=== PATIENT | female | born 1965 | race Caucasian/White ===

== ENCOUNTER 2023-04-14 00:09 | Inpatient (IN) | payer OTHER ==
[~2023-04-14] VITALS: Ht 160 cm; Wt 80.5 kg
[2023-04-14 03:10] VITALS: BP 104/71
[2023-04-14 04:04] LABS: Hematocrit 39.2 % (33.0-51.0); Hemoglobin 13.2 g/dL (11.5-16.0); Mean Platelet Volume 9.9 fL (9.1-12.4); Platelet Count 214 K/mm3 (150-400)
[2023-04-14 04:24] LABS: CHOL/HDL RATIO 3.1; Cholesterol 132 mg/dL (50-200); HDL Cholesterol 42 mg/dL (>39); LDL/HDL RATIO 1.3; Low Density Lipoprotein Chol 54 mg/dL (0-110); Triglycerides 179 mg/dL (30-160); Very Low Density Lipoprot Chol 35 mg/dL (6-32)
[2023-04-14] MEDS ORDERED: DIGOX125 MC1 PO (05:33)
[2023-04-14] MEDS ORDERED: CLON1 PO (05:33)
[2023-04-14] MEDS ORDERED: TRULICITY0.75 MG/01 SC (05:34)
[2023-04-14] MEDS ORDERED: FURO40 PO (05:35)
[2023-04-14] MEDS ORDERED: LAMO100 PO (05:35)
[2023-04-14] MEDS ORDERED: LEVALBUTER0.63 MG/1 INH (05:36)
[2023-04-14] MEDS ORDERED: LEVSOD25 PO (05:37)
[2023-04-14] MEDS ORDERED: LOSA25 PO (05:38)
[2023-04-14] MEDS ORDERED: METF500 PO (05:38)
[2023-04-14] MEDS ORDERED: METO50 PO (05:39)
[2023-04-14] MEDS ORDERED: PANT40 PO (05:39)
[2023-04-14] MEDS ORDERED: POTA10T PO (05:40)
[2023-04-14] MEDS ORDERED: POTCHL20ER PO (05:41)
[2023-04-14] MEDS ORDERED: PRAV20 PO (05:42)
[2023-04-14] MEDS ORDERED: XARELTO20 MG PO (05:42)
[2023-04-14] MEDS ORDERED: Ropinirole HCl1 MG PO ×2 (05:42→05:43)
[2023-04-14] MEDS ORDERED: INSULIN GL100 UNIT/3 SC (05:44)
[2023-04-14] MEDS ORDERED: Aspir 8181 MG PO (05:44)
[2023-04-14] MEDS ORDERED: TRELEGY ELLIPT1 EACH INH (05:45)
[2023-04-14] MEDS ORDERED: NITR.4SL SL (05:45)
--- NOTE | 2023-04-14 06:45 | NUR ---
SHIFT SUMMARY PATIENT WAS A DIRECT ADMIT FROM [facility] IN [place] FOR NSTEMI. PATIENT ALERT AND ORIENTED X4, MINIMAL ASSIST TO THE RESTROOM. SIGNIFICANT OTHER AT BEDSIDE. PATIENT ON 2 LITERS O2 VIA NASAL CANULA FOR COMFORT, SHE REPORTS THAT SHE NORMALLY WEARS A BIPAP TO SLEEP. PATIENT DENIES CHEST PAIN OR SHORTNESS OF BREATH. BLOOD PRESSURES STABLE, JUNCTIONAL RHYTHM 40'S-50'S ON TELE. HEPARIN INFUSION RUNNING. WILL CONTINUE TO MONITOR. CALL LIGHT WITHIN REACH.
[2023-04-14 07:19] VITALS: BP 110/67
--- NOTE | 2023-04-14 07:34 | NUR ---
AM NOTE... ASSUMED CARE OF PT AT 0700, PT IS A&Ox4. SHE WAS ADMITTED FOR NSTEMI, SHE CURRENTLY DENIES ANY CHEST PAIN/PRESSURE N/V OR INCREASED SOB. SHE IS IN A JUNCTIONAL RHYTHM IN THE 40'S. BP IS STABLE WITH MAPS>65. TRACE EDEMA IS NOTED TO HER BLE. MURMUR IS NOTED DURING THIS ASSESSMENT, PER PT SHE HAD A MITRAL VALVE REPLACED APROX 2YRS AGO. SHE IS ON 2L NC WITH O2 SATS>95%, INSP WHEEZES HEARD T/O DURING THIS ASSESSMENT. 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 HEPARIN DRIP IS RUNNING PER ORDERS. CALL LIGHT IN REACH WILL CONTINUE TO MONITOR.
[2023-04-14 13:24] VITALS: BP 92/55
--- NOTE | 2023-04-14 18:34 | NUR ---
SHIFT SUMMARY.... NO ACUTE NEGATIVE CHANGES NOTED THIS SHIFT. PT'S VS HAVE BEEN STABLE. PT HAS DENIED ANY CHEST PAIN THIS SHIFT. PLAN IS FOR STRESS TEST TOMORROW, NPO AFTER MIDNIGHT TONIGHT. PT CONVERTED FROM JUNCTIONAL IN THE 40'S TO SINUS IN THE 60'S-70'S AT 1540 THIS AFTERNOON. HEPARIN DRIP IS RUNNING PER ORDERS. CALL LIGHT IN REACH WILL CONTINUE TO MONITOR UNTIL REPORT IS GIVEN TO ONCOMING RN.
[2023-04-14 18:37] VITALS: BP 119/73
[2023-04-14 20:28] VITALS: BP 128/67
[2023-04-14 23:12] VITALS: BP 122/69
[2023-04-15 03:26] VITALS: BP 111/61
[2023-04-15 04:00] LABS: BASOPHILS PERCENT AUTO 1 % (0-2); EOSINOPHILS PERCENT AUTO 1 % (0-6); Hematocrit 37.7 % (33.0-51.0); Hemoglobin 12.7 g/dL (11.5-16.0); IMMATURE GRAN ABSOLUTE AUTO 0.03 K/mm3 (0.00-0.10); IMMATURE GRAN PERCENT AUTO 0 % (0-1); LYMPHOCYTES ABSOLUTE AUTO 1.66 K/mm3 (0.84-5.20); LYMPHOCYTES PERCENT AUTO 16 % (21-46); MONOCYTES ABSOLUTE AUTO 0.51 K/mm3 (0.16-1.47); MONOCYTES PERCENT AUTO 5 % (4-13); Mean Corpuscular HGB Conc 33.7 g/dL (31.5-36.5); Mean Corpuscular Volume 92 fL (80-100); Mean Platelet Volume 10.1 fL (9.1-12.4); NEUTROPHILS ABSOLUTE AUTO 7.73 K/mm3 (1.96-9.15); NEUTROPHILS PERCENT AUTO 76 % (41-73); Platelet Count 184 K/mm3 (150-400); RDW Coefficient Variation 13.2 % (11.7-14.2); RDW Standard Deviation 43.8 fL (35.1-46.3); White Blood Cell Count 10.13 K/mm3 (4.00-11.30)
[2023-04-15 04:20] LABS: Bun/Creatinine Ratio 19.1 (12.0-20.0); Calcium, Blood 8.6 mg/dL (8.5-10.1); Creatinine, Blood 0.68 mg/dL (0.40-1.00); Potassium, Blood 4.2 mmol/L (3.5-5.5)
--- NOTE | 2023-04-15 06:40 | NUR ---
SHIFT SUMMARY PATIENT ALERT AND ORIENTED X4, STAND BY ASSIST TO THE RESTROOM. SPO2 >92% ON ROOM AIR, BREATHING TREATMENTS MANAGED BY RT. PATIENT DENIED CHEST PAIN. VITAL SIGNS STABLE. NO ACUTE ISSUES NOTED OVERNIGHT. WILL CONTINUE TO MONITOR. CALL LIGHT WITHIN REACH.
[2023-04-15 08:25] VITALS: BP 119/83
[2023-04-15 12:05] VITALS: BP 107/68
--- NOTE | 2023-04-15 12:43 | NUR ---
TROPONINs ARE TRENDING DOWN PT WILL GO FOR CATH TOMORROW PENDING RESULTS OF STRESS TEST
[2023-04-15 15:29] VITALS: BP 123/72
[2023-04-15 15:30] VITALS: BP 123/72
--- NOTE | 2023-04-15 17:45 | NUR ---
PT A/O X4. DENIES INCREASED SOB, DENIES CP. VSS. PT HAS HAD STRESS TEST, POSSIBLE ANGIO IN THE AM PER CARDIOLOGY. PT LUZ ELENA BE NPO AT [facility]. PT REFUSED MORNING AND AFTERNOON INSULIN, SHE HAD BRING HER A NON-SUGAR FREE [employer] COFFEE THIS AFTERNOON WHICH ACCOUNTS FOR THE BLOOD SUGAR OF 300 THIS EVENING WHICH SHE WAS AGREEABLE FOR INSULIN COVERAGE TO TREAT THIS BLOOD SUGAR. PT OTHERWISE WAS UP TO SHOWER WITH TO ASSIST
[2023-04-15 21:37] VITALS: BP 127/77
[2023-04-16 00:05] VITALS: BP 113/60
[2023-04-16 03:59] VITALS: BP 108/69
--- NOTE | 2023-04-16 06:19 | NUR ---
SHIFT SUMMARY PATIENT ALERT AND ORIENTED X4, STAND BY ASSIST TO THE RESTROOM. PATIENT MEDICATED PER EMAR FOR HEADACHE, PATIENT DENIES CHEST PAIN. SPO2 >90% ON ROOM AIR. VITAL SIGNS STABLE. NO ACUTE ISSUES NOTED OVERNIGHT. WILL CONTINUE TO MONITOR. CALL LIGHT WITHIN REACH.
[2023-04-16 08:14] LABS: BASOPHILS ABSOLUTE AUTO 0.11 K/mm3 (0.00-0.23); BASOPHILS PERCENT AUTO 1 % (0-2); EOSINOPHILS ABSOLUTE AUTO 0.32 K/mm3 (0.00-0.68); EOSINOPHILS PERCENT AUTO 4 % (0-6); Hematocrit 36.9 % (33.0-51.0); Hemoglobin 12.4 g/dL (11.5-16.0); IMMATURE GRAN ABSOLUTE AUTO 0.04 K/mm3 (0.00-0.10); IMMATURE GRAN PERCENT AUTO 0 % (0-1); LYMPHOCYTES PERCENT AUTO 21 % (21-46); MONOCYTES ABSOLUTE AUTO 0.51 K/mm3 (0.16-1.47); MONOCYTES PERCENT AUTO 6 % (4-13); Mean Corpuscular HGB 30.7 pg (26.0-34.0); Mean Corpuscular HGB Conc 33.6 g/dL (31.5-36.5); Mean Corpuscular Volume 91 fL (80-100); Mean Platelet Volume 9.9 fL (9.1-12.4); NEUTROPHILS ABSOLUTE AUTO 6.17 K/mm3 (1.96-9.15); NEUTROPHILS PERCENT AUTO 68 % (41-73); Platelet Count 167 K/mm3 (150-400); RDW Coefficient Variation 13.2 % (11.7-14.2); RDW Standard Deviation 44.8 fL (35.1-46.3); Red Blood Cell Count 4.04 M/mm3 (3.80-5.20); White Blood Cell Count 9.05 K/mm3 (4.00-11.30)
[2023-04-16 08:34] LABS: Bun/Creatinine Ratio 11.7 (12.0-20.0); Creatinine, Blood 0.6 mg/dL (0.40-1.00); Potassium, Blood 4.1 mmol/L (3.5-5.5)
[2023-04-16 09:20] VITALS: BP 134/84
[2023-04-16 12:11] VITALS: BP 129/86
[2023-04-16] MEDS ORDERED: CLOP75 PO (15:52)
--- NOTE | 2023-04-16 17:12 | NUR ---
pt d/c to home, IV removed and pressure dressed. Rx faxed to pharmacy in [place] per her request. Pt and family expressed understanding of DC and deny further questions or needs. Pt taken by wheelchair out of unit. Pt agreeable to medcial management. She has been resting well in bed t/o the day. Denies cp or sob. VSS. Ambulatory, a/o x4.
== END 2023-04-16 16:31 | disposition home or self-care (01) | DRG 281 ==
LOC: PCU 00:09
PROVIDERS: Family Medicine; Student in an Organized Health Care Education/Training Program; ADMIT Internal Medicine
DX: I21.4 Non-ST elevation (NSTEMI) myocardial infarction (principal); I48.20 Chronic atrial fibrillation, unspecified; I50.22 Chronic systolic (congestive) heart failure; I25.10 Atherosclerotic heart disease of native coronary artery without angina pectoris; J44.9 Chronic obstructive pulmonary disease, unspecified; R68.84 Jaw pain; E03.9 Hypothyroidism, unspecified; E11.9 Type 2 diabetes mellitus without complications; E78.5 Hyperlipidemia, unspecified; G25.81 Restless legs syndrome; G47.33 Obstructive sleep apnea (adult) (pediatric); K21.9 Gastro-esophageal reflux disease without esophagitis; F17.210 Nicotine dependence, cigarettes, uncomplicated; Z95.5 Presence of coronary angioplasty implant and graft; Z88.5 Allergy status to narcotic agent; Z79.01 Long term (current) use of anticoagulants; Z88.8 Allergy status to other drugs, medicaments and biological substances; Z79.82 Long term (current) use of aspirin; Z79.899 Other long term (current) drug therapy; Z79.4 Long term (current) use of insulin; Z79.890 Hormone replacement therapy; Z99.89 Dependence on other enabling machines and devices
CPT/HCPCS: 36415; 78452; 80048; 80061; 82947; 84484; 85014; 85018; 85025; 85049; 85520; 85730; 93005; 93010; 93017; 94640; 94660; 94664; 94760; 94762; 96374; 96376; A9270; A9500; C8929; G0378; J0706; J1644; J2785; Q9957